=== PATIENT | male | born 1960 | race American Indian/Alaskan Native ===

== ENCOUNTER 2017-07-11 11:03 | Emergency (ER) | payer OTHER ==
[2017-07-11 12:40] VITALS: BP 143/96
[2017-07-11 13:25] LABS: Basophils % (Auto) 0.5 % (0.0-1.8); Eosinophils # (Auto) 0.1 K/mm3 (0.0-0.4); Hemoglobin 14.9 gm/dl (11.8-15.2); Lymphocytes # (Auto) 1.2 K/mm3 (1.2-5.4); Lymphocytes % (Auto) 24.9 % (13.4-35.0); Mean Corpuscular HGB Conc 34 % (32-34); Mean Corpuscular Hemoglobin 29 pg (28-32); Mean Corpuscular Volume 87 fl (84-94); Monocytes # (Auto) 0.5 K/mm3 (0.0-0.8); Platelet Count 162 K/mm3 (140-440); Red Blood Count 5.09 M/mm3 (3.65-5.03); Red Cell Distribution Width 14.1 % (13.2-15.2)
[2017-07-11 13:36] LABS: BUN/Creatinine Ratio 13; Blood Urea Nitrogen 10 mg/dL (9-20); Calcium 9.3 mg/dL (8.4-10.2); Hemolysis Index 9
[2017-07-11 16:00] LABS: Bilirubin,Urine NEG (Negative); Blood,Urine NEG (Negative); Color,Urine Amber (Yellow); Mucus,Urine FEW /HPF; Nitrite,Urine NEG (Negative); Protein,Urine <15 mg/dL mg/dL (Negative); Sperm,Urine 1+ /HPF (NP); Urobilinogen,Urine < 2.0 mg/dL (<2.0)
[2017-07-11 16:06] LABS: Amphetamine Screen,Urine PRESUMPTIVE NEGATIVE; Benzodiazepines Screen,Urine PRESUMPTIVE NEGATIVE; Cannabinoid Screen,Urine PRESUMPTIVE NEGATIVE; Cocaine Screen,Urine PRESUMPTIVE NEGATIVE; Methadone Screen,Urine PRESUMPTIVE NEGATIVE; Opiate Screen,Urine PRESUMPTIVE NEGATIVE
--- NOTE | 2017-07-11 21:40 | Emergency Department Report ---
HPI - General Chief Complaint: Alcohol Time Seen by Provider: 07/11/17 21:18 - HPI HPI: This is a 57-year-old -[place] male presents to the emergency department from home, dropped off by a friend, with the hope for alcohol abuse rehabilitation. The patient last drank last night. He did not have anything to drink today and does not appear intoxicated. He denies any illicit drug use. He denies any other past medical history. He denies any history of withdrawal symptoms or delirium tremens. He says that he drinks every night " if I am able to." No recent travel or sick contacts at home. He denies any tremors, nausea, vomiting, abdominal pain. He does not have a primary care physician. ED Past Medical Hx - Past Medical History Previous Medical History?: Yes Additional medical history: Brain injury - Surgical History Past Surgical History?: No - Social History Smoking Status: Never Smoker Substance Use Type: Alcohol ED Review of Systems ROS: Stated complaint: SUBSTANCE ABUSE EVALUATION Other details as noted in HPI Comment: All other systems reviewed and negative Constitutional: denies: chills, fever Eyes: denies: eye pain, eye discharge, vision change ENT: denies: ear pain, throat pain Respiratory: denies: cough, shortness of breath, wheezing Cardiovascular: denies: chest pain, palpitations Gastrointestinal: denies: abdominal pain, nausea, diarrhea Genitourinary: denies: urgency, dysuria Musculoskeletal: denies: back pain, joint swelling, arthralgia Skin: denies: rash, lesions Neurological: denies: headache, weakness, paresthesias Physical Exam - Physical Exam Vital Signs: Vital Signs 07/11/17 12:35 Temperature 98.7 F Pulse Rate 77 Respiratory 16 Rate Blood Pressure 143/96 O2 Sat by Pulse 98 Oximetry Physical Exam: GENERAL: The patient is well-developed well-nourished. HENT: Normocephalic. Atraumatic. Patient has moist mucous membranes. EYES: Extraocular motions are intact. Pupils equal reactive to light bilaterally. NECK: Supple. Trachea is midline. CHEST/LUNGS: Clear to auscultation. There is no respiratory distress noted. HEART/CARDIOVASCULAR: Regular. There is no tachycardia. There is no murmur. ABDOMEN: Abdomen is soft, nontender. Patient has normal bowel sounds. There is no abdominal distention. SKIN: Skin is warm and dry. NEURO: The patient is awake, alert, and oriented. The patient is cooperative. The patient has no focal neurologic deficits. The patient has normal speech. MUSCULOSKELETAL: There is no tenderness or deformity. There is no limitation range of motion. There is no evidence of acute injury. ED Course Vital Signs 07/11/17 12:35 Temperature 98.7 F Pulse Rate 77 Respiratory 16 Rate Blood Pressure 143/96 O2 Sat by Pulse 98 Oximetry ED Medical Decision Making - Lab Data Result diagrams: 07/11/17 12:58 07/11/17 12:58 - Medical Decision Making Patient has a history of alcohol dependence. He is about 24 hours from his last drink . He has no signs of withdrawal at this time. He has no history of delirium tremens. Labs have been unremarkable. Vital signs stable. He was seen by the psych tax assessor who says that there is no availability for any alcohol detox and is uninsured patient and was given a referral for the [facility] and encouraged to follow up as a walk-in tomorrow morning. All this information was given to the patient and he understands. He has been encouraged to return to the emergency Department with any withdrawal signs or signs of acute distress. - Differential Diagnosis alcohol dependence, alcohol withdrawal, delirium tremens Critical Care Time: No Critical care attestation.: If time is entered above; I have spent that time in minutes in the direct care of this critically ill patient, excluding procedure time. ED Disposition Clinical Impression: History of alcohol dependence Disposition: [id number] TO HOME OR SELFCARE Is pt being admited?: No Condition: Stable Instructions: Abuse of Alcohol (ED), Alcohol Withdrawal (ED) Additional Instructions: Please follow up with the [facility] tomorrow to get assistance with your alcohol rehabilitation. Return to the emergency Department with any acute distress. Referrals: PRIMARY CARE, [Primary Care Provider] - 3-5 Days [facility] [Outside] - 3-5 Days [facility] [Outside] - 3-5 Days Time of Disposition: 22:13
== END 2017-07-11 22:30 | disposition home or self-care (01) ==
LOC: ED 11:03
DX: F10.21 Alcohol dependence, in remission (principal)
CPT/HCPCS: 36415; 80048; 80307; 81001; 85025; 99284; G0480; 80320